=== PATIENT | male | born 1965 | race Hispanic/Latino ===

== ENCOUNTER 2022-06-22 13:14 | Outpatient (CLI) | payer BC, OTHER, SELFPAY | END 2022-06-22 13:15 | disposition home or self-care (01) | LOC: CSHWCC 13:14 | PROVIDERS: ATTEND Nurse Practitioner Family | DX: S81.801D Unspecified open wound, right lower leg, subsequent encounter (principal); R60.0 Localized edema | CPT/HCPCS: 97605; 99203; G0463 ==

== ENCOUNTER 2022-06-26 08:10 | Outpatient (CLI) | payer OTHER | END 2022-06-26 08:11 | disposition home or self-care (01) | LOC: CSHWCC 08:10 | PROVIDERS: ATTEND Nurse Practitioner Family | DX: S81.801D Unspecified open wound, right lower leg, subsequent encounter (principal); R60.0 Localized edema | CPT/HCPCS: 99212; G0463 ==

== ENCOUNTER 2022-07-06 14:31 | Outpatient (CLI) | payer OTHER | END 2022-07-06 14:32 | disposition home or self-care (01) | LOC: CSHWCC 14:31 | PROVIDERS: ATTEND Nurse Practitioner Family | DX: S81.801D Unspecified open wound, right lower leg, subsequent encounter (principal); R60.0 Localized edema | CPT/HCPCS: 11042; 97605 ==

== ENCOUNTER 2022-07-10 11:22 | Outpatient (CLI) | payer OTHER | END 2022-07-10 11:23 | disposition home or self-care (01) | LOC: CSHWCC 11:22 | PROVIDERS: ATTEND Nurse Practitioner Family | DX: S81.801D Unspecified open wound, right lower leg, subsequent encounter (principal); R60.0 Localized edema | CPT/HCPCS: 97605 ==

== ENCOUNTER 2022-07-14 12:48 | Outpatient (CLI) | payer OTHER | END 2022-07-14 12:49 | disposition home or self-care (01) | LOC: CSHWCC 12:48 | PROVIDERS: ATTEND Nurse Practitioner Family | DX: S81.801D Unspecified open wound, right lower leg, subsequent encounter (principal) | CPT/HCPCS: 97605 ==

== ENCOUNTER 2022-07-17 10:51 | Outpatient (CLI) | payer OTHER | END 2022-07-17 10:52 | disposition home or self-care (01) | LOC: CSHWCC 10:51 | PROVIDERS: ATTEND Nurse Practitioner Family | DX: S81.801D Unspecified open wound, right lower leg, subsequent encounter (principal); R60.0 Localized edema | CPT/HCPCS: 97605 ==

== ENCOUNTER 2022-07-21 11:37 | Outpatient (CLI) | payer OTHER | END 2022-07-21 11:38 | disposition home or self-care (01) | LOC: CSHWCC 11:37 | PROVIDERS: ATTEND Nurse Practitioner Family | DX: S81.801D Unspecified open wound, right lower leg, subsequent encounter (principal); R60.0 Localized edema ==

== ENCOUNTER 2022-07-28 10:18 | Outpatient (CLI) | payer OTHER | END 2022-07-28 10:19 | disposition home or self-care (01) | LOC: CSHWCC 10:18 | PROVIDERS: ATTEND Nurse Practitioner Family | DX: S81.801D Unspecified open wound, right lower leg, subsequent encounter (principal); R60.0 Localized edema | CPT/HCPCS: 11042; 11045; 97605 ==

== ENCOUNTER 2022-07-31 10:32 | Outpatient (CLI) | payer OTHER | END 2022-07-31 10:33 | disposition home or self-care (01) | LOC: CSHWCC 10:32 | PROVIDERS: ATTEND Nurse Practitioner Family | DX: S81.801D Unspecified open wound, right lower leg, subsequent encounter (principal); R60.0 Localized edema | CPT/HCPCS: 29581; 97605 ==

== ENCOUNTER 2022-08-04 08:07 | Outpatient (CLI) | payer OTHER | END 2022-08-04 08:08 | disposition home or self-care (01) | LOC: CSHWCC 08:07 | PROVIDERS: ATTEND Nurse Practitioner Family | DX: S81.801D Unspecified open wound, right lower leg, subsequent encounter (principal); R60.0 Localized edema | CPT/HCPCS: 29581; 97605 ==

== ENCOUNTER 2022-08-26 14:23 | Outpatient (CLI) | payer OTHER | END 2022-08-26 14:24 | disposition home or self-care (01) | LOC: CSHWCC 14:23 | PROVIDERS: ATTEND Nurse Practitioner Family | DX: S81.801D Unspecified open wound, right lower leg, subsequent encounter (principal); R60.0 Localized edema | CPT/HCPCS: 29581; 97605 ==

== ENCOUNTER 2022-09-08 11:27 | Outpatient (CLI) | payer OTHER | END 2022-09-08 11:28 | disposition home or self-care (01) | LOC: CSHWCC 11:27 | PROVIDERS: ATTEND Nurse Practitioner Family | DX: S81.801D Unspecified open wound, right lower leg, subsequent encounter (principal); S91.301D Unspecified open wound, right foot, subsequent encounter; R60.0 Localized edema ==

== ENCOUNTER 2022-09-11 10:51 | Outpatient (CLI) | payer OTHER | END 2022-09-11 10:52 | disposition home or self-care (01) | LOC: CSHWCC 10:51 | PROVIDERS: ATTEND Nurse Practitioner Family | DX: S81.801D Unspecified open wound, right lower leg, subsequent encounter (principal); S91.301D Unspecified open wound, right foot, subsequent encounter | CPT/HCPCS: 97605 ==

== ENCOUNTER 2022-09-16 12:03 | Outpatient (CLI) | payer OTHER | END 2022-09-16 12:04 | disposition home or self-care (01) | LOC: CSHWCC 12:03 | PROVIDERS: ATTEND Nurse Practitioner Family | DX: S81.801D Unspecified open wound, right lower leg, subsequent encounter (principal); S91.301D Unspecified open wound, right foot, subsequent encounter; R60.0 Localized edema | CPT/HCPCS: 99213; G0463 ==

== ENCOUNTER 2022-09-16 12:41 | Inpatient (IN) | payer OTHER ==
[2022-09-16 13:45] LABS: #Basophils 0.1 10x3/uL (0.0-0.2); #Eosinphils 0.7 10x3/uL (0.0-0.5); #Monocytes 0.7 10x3/uL (0.0-1.1); #Neutrophils 8.6 10x3/uL (1.5-8.4); %Basophils 0.9 % (0.0-2.0); %Eosinophils 6.2 % (0.0-6.0); %Lymphocytes 11.5 % (18.0-47.0); %Monocytes 6.2 % (0.0-10.0); %Neutrophils 74.7 % (40.0-75.0); Hemoglobin 11.3 g/dL (13.5-17.5); Mean Corpuscular HGB CONC 31.7 g/dL (32.0-36.0); Mean Corpuscular Hemoglobin 25.2 pg (27.0-33.0); Mean Corpuscular Volume 79.7 fl (81.2-95.1); Mean Platelet Volume 9.8 fl (7.4-10.4); Platelet Count 392 10x3/uL (150-450); RBC Distribution Width 15.2 % (11.5-14.5); Red Blood Cell (RBC) Count 4.48 10x6/uL (4.32-5.72); White Blood Cell (WBC) Count 11.5 10x3/uL (3.5-10.5)
[2022-09-16 13:54] LABS: ALT (SGPT) 18 U/L (8-55); AST (SGOT) 14 U/L (5-34); Albumin 4.1 g/dL (3.5-5.0); Alkaline Phosphatase 239 U/L (40-110); Anion Gap 16 mmol/L (10-20); BUN (Urea Nitrogen) 17 mg/dL (8.4-25.7); Bilirubin, Total 0.4 mg/dL (0.2-1.2); CRP (Inflammatory) 6.33 mg/dL (= or < 0.5); Calc. Creatinine Clearance 0 mL/min (70-130); Calcium 10.1 mg/dL (7.8-10.44); Carbon Dioxide 22 mmol/L (22-29); Chloride 103 mmol/L (98-107); Estimated GFR 101; Globulin 4.5 g/dL (2.4-3.5); Glucose 169 mg/dL (70-105); Potassium 4.5 mmol/L (3.5-5.1); Protein, Total 8.6 g/dL (6.0-8.3); Sodium 136 mmol/L (136-145)
[2022-09-16] MEDS ORDERED: Cefepime 2 GM VIAL ONE (16:04)
[2022-09-16] MEDS ORDERED: Vancomycin 1.5 GRAM/300 ML BAG 1.5 GM in Premix Bag 1 BAG IVPB SCH (16:15)
[2022-09-16] MEDS ORDERED: Calcium Carbonate 500 MG ChewTAB PO PRN (19:13)
[2022-09-16] MEDS ORDERED: Dextrose 5% in Water 1,000 ML IV PRN (19:13)
[2022-09-16] MEDS ORDERED: Senokot S 8.6-50 MG TAB PO PRN (19:13)
[2022-09-16] MEDS ORDERED: HYDROcodone/Acetaminophen 5/325 mg Tablet PO PRN (19:13)
[2022-09-16] MEDS ORDERED: Guaifenesin DM 100-10/5 ML UDCUP PO PRN (19:13)
[2022-09-16] MEDS ORDERED: Acetaminophen 325 MG TAB PO PRN (19:13)
[2022-09-16] MEDS ORDERED: Dextrose 50% Abboject 50 ML SYRINGE SLOW IVP PRN (19:13)
[2022-09-16] MEDS ORDERED: Zolpidem Tartrate 5 MG TAB PO PRN (19:13)
[2022-09-16] MEDS ORDERED: Ondansetron PF 4 MG/2 ML Vial IVP PRN (19:13)
[2022-09-16] MEDS ORDERED: Morphine 4 MG/ML VIAL ONE (19:25)
[2022-09-16] MEDS ORDERED: Atorvastatin Calcium 20 MG TAB PO SCH (21:45)
[2022-09-16] MEDS ORDERED: Atorvastatin Calcium 10 MG TAB ONE (21:53)
[2022-09-16] MEDS ORDERED: Amlodipine 5 MG TAB ONE (21:53)
[2022-09-16] MEDS ORDERED: Amlodipine 5 MG TAB PO SCH (22:00)
[2022-09-16] MEDS ORDERED: hydrALAZINE 20 MG/ML VIAL SLOW IVP PRN (23:14)
[2022-09-16] MEDS ORDERED: Nitroglycerin 2% Ointment 1 INCH/1 GM Packet ONE (23:22)
[2022-09-16] MEDS ORDERED: Losartan 25 MG TAB ONE (23:23)
[2022-09-16] MEDS ORDERED: Losartan 25 MG TAB PO SCH (23:59)
[2022-09-16] MEDS ORDERED: Nitroglycerin 2% Ointment 1 INCH/1 GM Packet TOP SCH (23:59)
[2022-09-17] MEDS ORDERED: hydrALAZINE 20 MG/ML VIAL ONE (01:08)
[2022-09-17] MEDS: HumaLOG 300 UNITS/3 ML VIAL SC PRN ×3 (01:16→17:26)
[2022-09-17] MEDS ORDERED: Vancomycin 1 GM VIAL ONE (03:31)
[2022-09-17 03:43] VITALS: BMI 32.9
[2022-09-17 03:55] LABS: #Basophils 0.1 10x3/uL (0.0-0.2); #Eosinphils 0.8 10x3/uL (0.0-0.5); #Monocytes 0.7 10x3/uL (0.0-1.1); #Neutrophils 9.8 10x3/uL (1.5-8.4); %Basophils 0.6 % (0.0-2.0); %Eosinophils 6.5 % (0.0-6.0); %Lymphocytes 6.5 % (18.0-47.0); %Monocytes 5.8 % (0.0-10.0); %Neutrophils 80.3 % (40.0-75.0); Hemoglobin 9.7 g/dL (13.5-17.5); Mean Corpuscular HGB CONC 31.5 g/dL (32.0-36.0); Mean Corpuscular Hemoglobin 25.2 pg (27.0-33.0); Mean Platelet Volume 9.7 fl (7.4-10.4); Platelet Count 359 10x3/uL (150-450); RBC Distribution Width 15.3 % (11.5-14.5); Red Blood Cell (RBC) Count 3.85 10x6/uL (4.32-5.72); White Blood Cell (WBC) Count 12.2 10x3/uL (3.5-10.5)
[2022-09-17 04:06] LABS: Anion Gap 13 mmol/L (10-20); BUN (Urea Nitrogen) 15 mg/dL (8.4-25.7); Calc. Creatinine Clearance 118 mL/min (70-130); Calcium 9.6 mg/dL (7.8-10.44); Carbon Dioxide 23 mmol/L (22-29); Cardiac Risk 3.4 (Less than 4.5); Chloride 105 mmol/L (98-107); Cholesterol 131 mg/dl (< 200 Desired); Estimated GFR 103; Glucose 147 mg/dL (70-105); HDL Cholesterol 39 mg/dL (>60 Neg Risk); LDL Cholesterol, Calculated 74 mg/dL; Potassium 4.4 mmol/L (3.5-5.1); Sodium 137 mmol/L (136-145); Triglycerides 89 mg/dL (Less than 150)
[2022-09-17 04:23] LABS: CRP (Inflammatory) 5.52 mg/dL (= or < 0.5)
[2022-09-17] MEDS ORDERED: Cefepime 1 GM VIAL ONE (04:55)
[2022-09-17] MEDS ORDERED: Vancomycin HCl 1 GM in Sodium Chloride 0.9% 250 ML 250 ML IVPB SCH (05:00)
[2022-09-17] MEDS ORDERED: Cefepime 1 GM in Sodium Chloride 0.9% 100 ML IVPB SCH (06:30)
[2022-09-17] MEDS ORDERED: metFORMIN 500 MG TAB PO SCH ×2 (08:00)
[2022-09-17] MEDS ORDERED: NIFEdipine XL 30 MG TAB ONE (08:46)
[2022-09-17] MEDS ORDERED: Losartan Potassium 50 MG TAB ONE (08:47)
[2022-09-17] MEDS ORDERED: Aspirin Chewable 81 MG TAB ONE (08:48)
[2022-09-17] MEDS ORDERED: metroNIDAZOLE 500 MG/100 ML BAG ONE (08:48)
[2022-09-17] MEDS ORDERED: metroNIDAZOLE 500 MG in Premix Bag 1 BAG IVPB SCH (09:00)
[2022-09-17] MEDS ORDERED: NIFEdipine XL 30 MG TAB PO SCH (09:00)
[2022-09-17] MEDS ORDERED: Aspirin 81 mg Enteric Coated Tablet PO SCH (09:00)
[2022-09-17] MEDS ORDERED: NIFEdipine XL 90 MG TAB PO SCH (09:00)
[2022-09-17] MEDS ORDERED: Losartan Potassium 50 MG TAB PO SCH (09:00)
[2022-09-17] MEDS ORDERED: Magnevist 469MG/ML 20 ML VIAL ONE ×2 (11:33→12:28)
[2022-09-17 13:12] LABS: Hemoglobin A1c 8.2 % (4.0-6.0)
[2022-09-17 16:35] VITALS: BP 139/73; TEMP 98.7
[2022-09-17] MEDS ORDERED: Cefepime 2 GM in Sodium Chloride 0.9% 100 ML IVPB SCH (18:30)
[2022-09-17] MEDS ORDERED: Atorvastatin Calcium 20 MG TAB PO SCH (21:00)
== END 2022-09-17 17:30 | disposition short-term general hospital (02) | DRG 638 ==
LOC: CSHERS 12:41 → CSHERHOLD 21:12 → CSHTELE 09-17 11:57
PROVIDERS: ADMIT Student in an Organized Health Care Education/Training Program; ATTEND Family Medicine
DX: E11.628 Type 2 diabetes mellitus with other skin complications (principal); E11.52 Type 2 diabetes mellitus with diabetic peripheral angiopathy with gangrene; L97.319 Non-pressure chronic ulcer of right ankle with unspecified severity; L97.819 Non-pressure chronic ulcer of other part of right lower leg with unspecified severity; S81.801A Unspecified open wound, right lower leg, initial encounter; I25.10 Atherosclerotic heart disease of native coronary artery without angina pectoris; I10 Essential (primary) hypertension; E78.5 Hyperlipidemia, unspecified; L08.9 Local infection of the skin and subcutaneous tissue, unspecified; I87.2 Venous insufficiency (chronic) (peripheral); D72.829 Elevated white blood cell count, unspecified; D64.9 Anemia, unspecified; M60.9 Myositis, unspecified; Z79.84 Long term (current) use of oral hypoglycemic drugs; Z91.011 Allergy to milk products; Z98.890 Other specified postprocedural states; Z90.49 Acquired absence of other specified parts of digestive tract; Z83.3 Family history of diabetes mellitus; Z79.899 Other long term (current) drug therapy; E11.622 Type 2 diabetes mellitus with other skin ulcer
CPT/HCPCS: 36415; 36416; 80048; 80053; 80061; 82607; 83036; 83605; 84145; 85025; 86140; 87040; 87081; 96365; 96366; 96367; 96375; 97139; A9579; J0360; J0692; J1815; J2270; J3370; J3490; J7050

== ENCOUNTER 2022-09-28 09:47 | Outpatient (CLI) | payer OTHER | END 2022-09-28 09:48 | disposition home or self-care (01) | LOC: CSHWCC 09:47 | PROVIDERS: ATTEND Nurse Practitioner Family | DX: S81.801D Unspecified open wound, right lower leg, subsequent encounter (principal); L97.229 Non-pressure chronic ulcer of left calf with unspecified severity; R60.0 Localized edema | CPT/HCPCS: 11043; 11046 ==

== ENCOUNTER 2022-10-01 13:22 | Outpatient (CLI) | payer OTHER | END 2022-10-01 13:23 | disposition home or self-care (01) | LOC: CSHWCC 13:22 | PROVIDERS: ATTEND Nurse Practitioner Family | DX: S81.801D Unspecified open wound, right lower leg, subsequent encounter (principal); L97.229 Non-pressure chronic ulcer of left calf with unspecified severity; L97.919 Non-pressure chronic ulcer of unspecified part of right lower leg with unspecified severity; R60.0 Localized edema | CPT/HCPCS: 11104; 88305; 99213; G0463 ==

== ENCOUNTER 2022-10-15 10:13 | Outpatient (CLI) | payer OTHER | END 2022-10-15 10:14 | disposition home or self-care (01) | LOC: CSHWCC 10:13 | PROVIDERS: ATTEND Nurse Practitioner Family | DX: S81.801D Unspecified open wound, right lower leg, subsequent encounter (principal); L97.229 Non-pressure chronic ulcer of left calf with unspecified severity; R60.0 Localized edema | CPT/HCPCS: 93923 ==

== ENCOUNTER 2022-10-21 13:00 | Outpatient (CLI) | payer OTHER | END 2022-10-21 13:01 | disposition home or self-care (01) | LOC: CSHWCC 13:00 | PROVIDERS: ATTEND Nurse Practitioner Family | DX: S81.801D Unspecified open wound, right lower leg, subsequent encounter (principal); L97.229 Non-pressure chronic ulcer of left calf with unspecified severity; R60.0 Localized edema | CPT/HCPCS: 99214; G0463 ==

== ENCOUNTER 2022-10-28 09:45 | Outpatient (CLI) | payer OTHER | END 2022-10-28 09:46 | disposition home or self-care (01) | LOC: CSHWCC 09:45 | PROVIDERS: ATTEND Nurse Practitioner Family | DX: S81.801D Unspecified open wound, right lower leg, subsequent encounter (principal); L97.919 Non-pressure chronic ulcer of unspecified part of right lower leg with unspecified severity; L97.929 Non-pressure chronic ulcer of unspecified part of left lower leg with unspecified severity; R60.0 Localized edema | CPT/HCPCS: 99214; G0463 ==

== ENCOUNTER 2022-11-18 09:27 | Outpatient (CLI) | payer OTHER | END 2022-11-18 09:28 | disposition home or self-care (01) | LOC: CSHWCC 09:27 | PROVIDERS: ATTEND Nurse Practitioner Family | DX: R60.0 Localized edema (principal); L97.229 Non-pressure chronic ulcer of left calf with unspecified severity; L97.315 Non-pressure chronic ulcer of right ankle with muscle involvement without evidence of necrosis | CPT/HCPCS: 11042; 11045 ==

== ENCOUNTER 2022-12-21 08:14 | Outpatient (CLI) | payer OTHER | END 2022-12-21 08:15 | disposition home or self-care (01) | LOC: CSHWCC 08:14 | PROVIDERS: ATTEND Nurse Practitioner Family | DX: R60.0 Localized edema (principal); L97.229 Non-pressure chronic ulcer of left calf with unspecified severity; L97.315 Non-pressure chronic ulcer of right ankle with muscle involvement without evidence of necrosis | CPT/HCPCS: 11042; 11045; 99213; G0463 ==

== ENCOUNTER 2023-01-20 13:02 | Outpatient (CLI) | payer OTHER | END 2023-01-20 13:03 | disposition home or self-care (01) | LOC: CSHWCC 13:02 | PROVIDERS: ATTEND Nurse Practitioner Family | DX: R60.0 Localized edema (principal); L97.229 Non-pressure chronic ulcer of left calf with unspecified severity; L97.315 Non-pressure chronic ulcer of right ankle with muscle involvement without evidence of necrosis; S81.802D Unspecified open wound, left lower leg, subsequent encounter | CPT/HCPCS: 11042; 97139; G0463; 99213 ==

== ENCOUNTER 2023-02-04 13:08 | Outpatient (CLI) | payer OTHER | END 2023-02-04 13:09 | disposition home or self-care (01) | LOC: CSHWCC 13:08 | PROVIDERS: ATTEND Nurse Practitioner Family | DX: L97.229 Non-pressure chronic ulcer of left calf with unspecified severity (principal); L97.315 Non-pressure chronic ulcer of right ankle with muscle involvement without evidence of necrosis; S81.802D Unspecified open wound, left lower leg, subsequent encounter | CPT/HCPCS: 11042; 11045 ==

== ENCOUNTER 2023-02-08 08:07 | Outpatient (CLI) | payer OTHER | END 2023-02-08 08:08 | disposition home or self-care (01) | LOC: CSHWCC 08:07 | PROVIDERS: ATTEND Nurse Practitioner Family | DX: L97.229 Non-pressure chronic ulcer of left calf with unspecified severity (principal); R60.0 Localized edema | CPT/HCPCS: 97597 ==

== ENCOUNTER 2023-02-11 15:35 | Outpatient (CLI) | payer OTHER | END 2023-02-11 15:36 | disposition home or self-care (01) | LOC: CSHWCC 15:35 | PROVIDERS: ATTEND Nurse Practitioner Family | DX: R60.0 Localized edema (principal); L97.229 Non-pressure chronic ulcer of left calf with unspecified severity; L97.315 Non-pressure chronic ulcer of right ankle with muscle involvement without evidence of necrosis; S81.802D Unspecified open wound, left lower leg, subsequent encounter | CPT/HCPCS: 11042 ==

== ENCOUNTER 2023-02-17 08:13 | Outpatient (CLI) | payer OTHER | END 2023-02-17 08:14 | disposition home or self-care (01) | LOC: CSHWCC 08:13 | PROVIDERS: ATTEND Nurse Practitioner Family | DX: R60.0 Localized edema (principal); L97.229 Non-pressure chronic ulcer of left calf with unspecified severity; L97.315 Non-pressure chronic ulcer of right ankle with muscle involvement without evidence of necrosis; S81.802D Unspecified open wound, left lower leg, subsequent encounter | CPT/HCPCS: 11042 ==

== ENCOUNTER 2023-02-19 08:08 | Outpatient (CLI) | payer OTHER | END 2023-02-19 08:09 | disposition home or self-care (01) | LOC: CSHWCC 08:08 | PROVIDERS: ATTEND Nurse Practitioner Family | DX: S81.802D Unspecified open wound, left lower leg, subsequent encounter (principal); L97.315 Non-pressure chronic ulcer of right ankle with muscle involvement without evidence of necrosis; R60.0 Localized edema; L97.229 Non-pressure chronic ulcer of left calf with unspecified severity | CPT/HCPCS: 97597 ==

== ENCOUNTER 2023-02-23 08:06 | Outpatient (CLI) | payer OTHER | END 2023-02-23 08:07 | disposition home or self-care (01) | LOC: CSHWCC 08:06 | PROVIDERS: ATTEND Nurse Practitioner Family | DX: S81.802D Unspecified open wound, left lower leg, subsequent encounter (principal); L97.229 Non-pressure chronic ulcer of left calf with unspecified severity; R60.0 Localized edema; L97.315 Non-pressure chronic ulcer of right ankle with muscle involvement without evidence of necrosis | CPT/HCPCS: 11042; 11045 ==

== ENCOUNTER 2023-02-25 08:15 | Outpatient (CLI) | payer OTHER | END 2023-02-25 08:16 | disposition home or self-care (01) | LOC: CSHWCC 08:15 | PROVIDERS: ATTEND Nurse Practitioner Family | DX: S81.802D Unspecified open wound, left lower leg, subsequent encounter (principal); R60.0 Localized edema; L97.229 Non-pressure chronic ulcer of left calf with unspecified severity; L97.315 Non-pressure chronic ulcer of right ankle with muscle involvement without evidence of necrosis | CPT/HCPCS: 99211; G0463 ==

== ENCOUNTER → 2023-03-09 | Outpatient (CLI) | payer OTHER | LOC: CSHWCC 08:00 | PROVIDERS: ATTEND Preventive Medicine Undersea and Hyperbaric Medicine | DX: S81.802D Unspecified open wound, left lower leg, subsequent encounter (principal); L97.315 Non-pressure chronic ulcer of right ankle with muscle involvement without evidence of necrosis; L97.229 Non-pressure chronic ulcer of left calf with unspecified severity; R60.0 Localized edema | CPT/HCPCS: 99213; G0463 ==

== ENCOUNTER 2023-03-16 08:07 | Outpatient (CLI) | payer OTHER | END 2023-03-16 08:08 | disposition home or self-care (01) | LOC: CSHWCC 08:07 | PROVIDERS: ATTEND Preventive Medicine Undersea and Hyperbaric Medicine | DX: S81.802D Unspecified open wound, left lower leg, subsequent encounter (principal); L97.315 Non-pressure chronic ulcer of right ankle with muscle involvement without evidence of necrosis; R60.0 Localized edema | CPT/HCPCS: 36416; 99211; G0463 ==

== ENCOUNTER 2023-03-19 08:07 | Outpatient (CLI) | payer OTHER | END 2023-03-19 08:08 | disposition home or self-care (01) | LOC: CSHWCC 08:07 | PROVIDERS: ATTEND Physician Assistant | DX: S81.802D Unspecified open wound, left lower leg, subsequent encounter (principal); L97.315 Non-pressure chronic ulcer of right ankle with muscle involvement without evidence of necrosis; L97.229 Non-pressure chronic ulcer of left calf with unspecified severity; R60.0 Localized edema | CPT/HCPCS: 99211; G0463 ==

== ENCOUNTER 2023-03-23 08:07 | Outpatient (CLI) | payer OTHER | END 2023-03-23 08:08 | disposition home or self-care (01) | LOC: CSHWCC 08:07 | PROVIDERS: ATTEND Physician Assistant | DX: S81.802D Unspecified open wound, left lower leg, subsequent encounter (principal); L97.229 Non-pressure chronic ulcer of left calf with unspecified severity; L97.315 Non-pressure chronic ulcer of right ankle with muscle involvement without evidence of necrosis; R60.0 Localized edema | CPT/HCPCS: 11042; 11045; 29581 ==

== ENCOUNTER 2023-03-26 08:58 | Outpatient (CLI) | payer OTHER | END 2023-03-26 08:59 | disposition home or self-care (01) | LOC: CSHWCC 08:58 | PROVIDERS: ATTEND Physician Assistant | DX: S81.802D Unspecified open wound, left lower leg, subsequent encounter (principal); L97.315 Non-pressure chronic ulcer of right ankle with muscle involvement without evidence of necrosis; L97.229 Non-pressure chronic ulcer of left calf with unspecified severity; R60.0 Localized edema | CPT/HCPCS: 29581 ==

== ENCOUNTER 2023-03-31 14:14 | Outpatient (CLI) | payer OTHER | END 2023-03-31 14:15 | disposition home or self-care (01) | LOC: CSHWCC 14:14 | PROVIDERS: ATTEND Preventive Medicine Undersea and Hyperbaric Medicine | DX: S81.802D Unspecified open wound, left lower leg, subsequent encounter (principal); L97.229 Non-pressure chronic ulcer of left calf with unspecified severity; L97.315 Non-pressure chronic ulcer of right ankle with muscle involvement without evidence of necrosis; R60.0 Localized edema | CPT/HCPCS: 36416; 97602; 99213; G0463 ==

== ENCOUNTER 2023-04-02 09:54 | Outpatient (CLI) | payer OTHER | END 2023-04-02 09:55 | disposition home or self-care (01) | LOC: CSHWCC 09:54 | PROVIDERS: ATTEND Preventive Medicine Undersea and Hyperbaric Medicine | DX: S81.802D Unspecified open wound, left lower leg, subsequent encounter (principal); L97.229 Non-pressure chronic ulcer of left calf with unspecified severity; L97.315 Non-pressure chronic ulcer of right ankle with muscle involvement without evidence of necrosis; R60.0 Localized edema | CPT/HCPCS: 97602 ==

== ENCOUNTER 2023-04-20 09:26 | Outpatient (CLI) | payer OTHER | END 2023-04-20 09:27 | disposition home or self-care (01) | LOC: CSHWCC 09:26 | PROVIDERS: ATTEND Physician Assistant | DX: E11.51 Type 2 diabetes mellitus with diabetic peripheral angiopathy without gangrene (principal); I87.313 Chronic venous hypertension (idiopathic) with ulcer of bilateral lower extremity | CPT/HCPCS: 11043; 29581; 97597 ==

== ENCOUNTER 2023-04-30 08:07 | Outpatient (CLI) | payer OTHER | END 2023-04-30 08:08 | disposition home or self-care (01) | LOC: CSHWCC 08:07 | PROVIDERS: ATTEND Physician Assistant | DX: E11.8 Type 2 diabetes mellitus with unspecified complications (principal); I87.313 Chronic venous hypertension (idiopathic) with ulcer of bilateral lower extremity; I73.9 Peripheral vascular disease, unspecified | CPT/HCPCS: 29581 ==

== ENCOUNTER 2023-05-19 09:43 | Outpatient (CLI) | payer OTHER | END 2023-05-19 09:44 | disposition home or self-care (01) | LOC: CSHWCC 09:43 | PROVIDERS: ATTEND Physician Assistant | DX: I87.313 Chronic venous hypertension (idiopathic) with ulcer of bilateral lower extremity (principal); I73.9 Peripheral vascular disease, unspecified; L97.919 Non-pressure chronic ulcer of unspecified part of right lower leg with unspecified severity; L97.929 Non-pressure chronic ulcer of unspecified part of left lower leg with unspecified severity; E11.8 Type 2 diabetes mellitus with unspecified complications | CPT/HCPCS: 36416; 87070; 87077; 87186; 87205; 99214; G0463 ==

== ENCOUNTER 2023-06-21 15:24 | Outpatient (CLI) | payer OTHER | END 2023-06-21 15:25 | disposition home or self-care (01) | LOC: CSHWCC 15:24 | PROVIDERS: ATTEND Preventive Medicine Undersea and Hyperbaric Medicine | DX: I70.233 Atherosclerosis of native arteries of right leg with ulceration of ankle (principal); I87.313 Chronic venous hypertension (idiopathic) with ulcer of bilateral lower extremity; E11.8 Type 2 diabetes mellitus with unspecified complications; L97.523 Non-pressure chronic ulcer of other part of left foot with necrosis of muscle; L03.116 Cellulitis of left lower limb | CPT/HCPCS: 99213; G0463 ==

== ENCOUNTER 2023-06-24 13:09 | Outpatient (CLI) | payer OTHER | END 2023-06-24 13:10 | disposition home or self-care (01) | LOC: CSHWCC 13:09 | PROVIDERS: ATTEND Preventive Medicine Undersea and Hyperbaric Medicine | DX: I70.233 Atherosclerosis of native arteries of right leg with ulceration of ankle (principal); I87.313 Chronic venous hypertension (idiopathic) with ulcer of bilateral lower extremity; L97.523 Non-pressure chronic ulcer of other part of left foot with necrosis of muscle; E11.8 Type 2 diabetes mellitus with unspecified complications; L03.116 Cellulitis of left lower limb | CPT/HCPCS: 29581 ==

== ENCOUNTER 2023-07-27 14:34 | Outpatient (CLI) | payer OTHER | END 2023-07-27 14:35 | disposition home or self-care (01) | LOC: CSHWCC 14:34 | PROVIDERS: ATTEND Nurse Practitioner Family | DX: I87.313 Chronic venous hypertension (idiopathic) with ulcer of bilateral lower extremity (principal); E11.621 Type 2 diabetes mellitus with foot ulcer; L97.523 Non-pressure chronic ulcer of other part of left foot with necrosis of muscle; I70.233 Atherosclerosis of native arteries of right leg with ulceration of ankle; L03.116 Cellulitis of left lower limb; E11.59 Type 2 diabetes mellitus with other circulatory complications; E11.8 Type 2 diabetes mellitus with unspecified complications; L97.319 Non-pressure chronic ulcer of right ankle with unspecified severity; L97.929 Non-pressure chronic ulcer of unspecified part of left lower leg with unspecified severity | CPT/HCPCS: 11042; 11045; 11104; 88305; 99215; G0463 ==

== ENCOUNTER 2023-07-30 12:24 | Outpatient (CLI) | payer OTHER | END 2023-07-30 12:25 | disposition home or self-care (01) | LOC: CSHWCC 12:24 | PROVIDERS: ATTEND Nurse Practitioner Family | DX: I87.313 Chronic venous hypertension (idiopathic) with ulcer of bilateral lower extremity (principal); I70.233 Atherosclerosis of native arteries of right leg with ulceration of ankle; L97.523 Non-pressure chronic ulcer of other part of left foot with necrosis of muscle; L03.116 Cellulitis of left lower limb; E11.59 Type 2 diabetes mellitus with other circulatory complications; E11.8 Type 2 diabetes mellitus with unspecified complications; L97.319 Non-pressure chronic ulcer of right ankle with unspecified severity; L97.929 Non-pressure chronic ulcer of unspecified part of left lower leg with unspecified severity | CPT/HCPCS: 99215; G0463 ==

== ENCOUNTER 2023-08-03 15:20 | Outpatient (CLI) | payer OTHER | END 2023-08-03 15:21 | disposition home or self-care (01) | LOC: CSHWCC 15:20 | PROVIDERS: ATTEND Nurse Practitioner Family | DX: I87.313 Chronic venous hypertension (idiopathic) with ulcer of bilateral lower extremity (principal); E11.621 Type 2 diabetes mellitus with foot ulcer; L97.523 Non-pressure chronic ulcer of other part of left foot with necrosis of muscle; I70.233 Atherosclerosis of native arteries of right leg with ulceration of ankle; L03.116 Cellulitis of left lower limb | CPT/HCPCS: 11042; 11043; 11046 ==

== ENCOUNTER 2023-08-06 12:01 | Outpatient (CLI) | payer OTHER | END 2023-08-06 12:02 | disposition home or self-care (01) | LOC: CSHWCC 12:01 | PROVIDERS: ATTEND Nurse Practitioner Family | DX: I87.313 Chronic venous hypertension (idiopathic) with ulcer of bilateral lower extremity (principal); I70.233 Atherosclerosis of native arteries of right leg with ulceration of ankle; L97.523 Non-pressure chronic ulcer of other part of left foot with necrosis of muscle; L03.116 Cellulitis of left lower limb; E11.8 Type 2 diabetes mellitus with unspecified complications; L97.929 Non-pressure chronic ulcer of unspecified part of left lower leg with unspecified severity | CPT/HCPCS: 29581 ==

== ENCOUNTER 2023-08-10 16:18 | Outpatient (CLI) | payer OTHER | END 2023-08-10 16:19 | disposition home or self-care (01) | LOC: CSHWCC 16:18 | PROVIDERS: ATTEND Nurse Practitioner Family | DX: I87.313 Chronic venous hypertension (idiopathic) with ulcer of bilateral lower extremity (principal); I70.233 Atherosclerosis of native arteries of right leg with ulceration of ankle; L97.523 Non-pressure chronic ulcer of other part of left foot with necrosis of muscle; L97.212 Non-pressure chronic ulcer of right calf with fat layer exposed; E11.8 Type 2 diabetes mellitus with unspecified complications; L03.116 Cellulitis of left lower limb | CPT/HCPCS: 11042; 11045 ==

== ENCOUNTER 2023-08-20 15:24 | Outpatient (CLI) | payer OTHER | END 2023-08-20 15:25 | disposition home or self-care (01) | LOC: CSHWCC 15:24 | PROVIDERS: ATTEND Nurse Practitioner Family | DX: I87.313 Chronic venous hypertension (idiopathic) with ulcer of bilateral lower extremity (principal); E11.621 Type 2 diabetes mellitus with foot ulcer; E11.622 Type 2 diabetes mellitus with other skin ulcer; L97.523 Non-pressure chronic ulcer of other part of left foot with necrosis of muscle; L97.212 Non-pressure chronic ulcer of right calf with fat layer exposed; L03.116 Cellulitis of left lower limb; I70.233 Atherosclerosis of native arteries of right leg with ulceration of ankle; E11.59 Type 2 diabetes mellitus with other circulatory complications | CPT/HCPCS: 29581 ==

== ENCOUNTER 2023-08-24 | Outpatient (CLI) | payer OTHER | END 2023-08-24 09:47 | disposition home or self-care (01) | DX: I87.313 Chronic venous hypertension (idiopathic) with ulcer of bilateral lower extremity (principal); I70.233 Atherosclerosis of native arteries of right leg with ulceration of ankle; E11.621 Type 2 diabetes mellitus with foot ulcer; L97.523 Non-pressure chronic ulcer of other part of left foot with necrosis of muscle; L97.212 Non-pressure chronic ulcer of right calf with fat layer exposed; L03.116 Cellulitis of left lower limb ==

== ENCOUNTER 2023-08-27 13:32 | Outpatient (CLI) | payer OTHER | END 2023-08-27 13:33 | disposition home or self-care (01) | LOC: CSHWCC 13:32 | PROVIDERS: ATTEND Nurse Practitioner Family | DX: I87.313 Chronic venous hypertension (idiopathic) with ulcer of bilateral lower extremity (principal); L97.523 Non-pressure chronic ulcer of other part of left foot with necrosis of muscle; L97.212 Non-pressure chronic ulcer of right calf with fat layer exposed; I70.211 Atherosclerosis of native arteries of extremities with intermittent claudication, right leg; L03.116 Cellulitis of left lower limb; I70.233 Atherosclerosis of native arteries of right leg with ulceration of ankle; E11.8 Type 2 diabetes mellitus with unspecified complications ==

== ENCOUNTER 2023-11-01 10:23 | Outpatient (CLI) | payer OTHER | END 2023-11-01 10:24 | disposition home or self-care (01) | LOC: CSHWCC 10:23 | PROVIDERS: ATTEND Nurse Practitioner Family | DX: I87.313 Chronic venous hypertension (idiopathic) with ulcer of bilateral lower extremity (principal); E11.622 Type 2 diabetes mellitus with other skin ulcer; L97.322 Non-pressure chronic ulcer of left ankle with fat layer exposed; L97.212 Non-pressure chronic ulcer of right calf with fat layer exposed; I70.233 Atherosclerosis of native arteries of right leg with ulceration of ankle | CPT/HCPCS: 11042; 99213; G0463 ==

== ENCOUNTER 2023-11-22 11:24 | Outpatient (CLI) | payer OTHER | END 2023-11-22 11:25 | disposition home or self-care (01) | LOC: CSHWCC 11:24 | PROVIDERS: ATTEND Nurse Practitioner Family | DX: I87.313 Chronic venous hypertension (idiopathic) with ulcer of bilateral lower extremity (principal); E11.622 Type 2 diabetes mellitus with other skin ulcer; L97.322 Non-pressure chronic ulcer of left ankle with fat layer exposed; L97.122 Non-pressure chronic ulcer of left thigh with fat layer exposed; I73.9 Peripheral vascular disease, unspecified | CPT/HCPCS: 11042; 97597 ==

== ENCOUNTER 2023-12-09 11:38 | Outpatient (CLI) | payer OTHER | END 2023-12-09 11:39 | disposition home or self-care (01) | LOC: CSHWCC 11:38 | PROVIDERS: ATTEND Nurse Practitioner Family | DX: I87.313 Chronic venous hypertension (idiopathic) with ulcer of bilateral lower extremity (principal); E11.622 Type 2 diabetes mellitus with other skin ulcer; L97.322 Non-pressure chronic ulcer of left ankle with fat layer exposed; L97.122 Non-pressure chronic ulcer of left thigh with fat layer exposed; I73.9 Peripheral vascular disease, unspecified | CPT/HCPCS: 11042; 87070; 87077; 87186; 87205; 97605 ==

== ENCOUNTER 2023-12-13 10:55 | Outpatient (CLI) | payer OTHER | END 2023-12-13 10:56 | disposition home or self-care (01) | LOC: CSHWCC 10:55 | PROVIDERS: ATTEND Nurse Practitioner Family | DX: I87.313 Chronic venous hypertension (idiopathic) with ulcer of bilateral lower extremity (principal); E11.622 Type 2 diabetes mellitus with other skin ulcer; L97.322 Non-pressure chronic ulcer of left ankle with fat layer exposed; L97.122 Non-pressure chronic ulcer of left thigh with fat layer exposed; I73.9 Peripheral vascular disease, unspecified ==

== ENCOUNTER 2023-12-17 16:00 | Outpatient (CLI) | payer OTHER | END 2023-12-17 16:01 | disposition home or self-care (01) | LOC: CSHWCC 16:00 | PROVIDERS: ATTEND Nurse Practitioner Family | DX: I87.313 Chronic venous hypertension (idiopathic) with ulcer of bilateral lower extremity (principal); E11.622 Type 2 diabetes mellitus with other skin ulcer; L97.322 Non-pressure chronic ulcer of left ankle with fat layer exposed; L97.212 Non-pressure chronic ulcer of right calf with fat layer exposed; L97.122 Non-pressure chronic ulcer of left thigh with fat layer exposed; E11.59 Type 2 diabetes mellitus with other circulatory complications | CPT/HCPCS: 11042 ==

== ENCOUNTER 2023-12-24 11:47 | Outpatient (CLI) | payer OTHER | END 2023-12-24 11:48 | disposition home or self-care (01) | LOC: CSHWCC 11:47 | PROVIDERS: ATTEND Nurse Practitioner Family | DX: I87.313 Chronic venous hypertension (idiopathic) with ulcer of bilateral lower extremity (principal); E11.622 Type 2 diabetes mellitus with other skin ulcer; L97.322 Non-pressure chronic ulcer of left ankle with fat layer exposed; L97.212 Non-pressure chronic ulcer of right calf with fat layer exposed; L97.122 Non-pressure chronic ulcer of left thigh with fat layer exposed; E11.59 Type 2 diabetes mellitus with other circulatory complications | CPT/HCPCS: 97597 ==

== ENCOUNTER 2023-12-30 13:09 | Outpatient (CLI) | payer OTHER | END 2023-12-30 13:10 | disposition home or self-care (01) | LOC: CSHWCC 13:09 | PROVIDERS: ATTEND Nurse Practitioner Family | DX: I87.313 Chronic venous hypertension (idiopathic) with ulcer of bilateral lower extremity (principal); E11.622 Type 2 diabetes mellitus with other skin ulcer; L97.322 Non-pressure chronic ulcer of left ankle with fat layer exposed; L97.122 Non-pressure chronic ulcer of left thigh with fat layer exposed; I73.9 Peripheral vascular disease, unspecified | CPT/HCPCS: 11042 ==

== ENCOUNTER 2024-01-06 15:50 | Outpatient (CLI) | payer OTHER | END 2024-01-06 15:51 | disposition home or self-care (01) | LOC: CSHWCC 15:50 | PROVIDERS: ATTEND Nurse Practitioner Family | DX: I87.313 Chronic venous hypertension (idiopathic) with ulcer of bilateral lower extremity (principal); E11.622 Type 2 diabetes mellitus with other skin ulcer; L97.322 Non-pressure chronic ulcer of left ankle with fat layer exposed; E11.59 Type 2 diabetes mellitus with other circulatory complications | CPT/HCPCS: 11042 ==

== ENCOUNTER 2024-03-09 13:01 | Outpatient (CLI) | payer OTHER | END 2024-03-09 13:02 | disposition home or self-care (01) | LOC: CSHWCC 13:01 | PROVIDERS: ATTEND Nurse Practitioner Family | DX: I87.313 Chronic venous hypertension (idiopathic) with ulcer of bilateral lower extremity (principal); E11.622 Type 2 diabetes mellitus with other skin ulcer; L97.322 Non-pressure chronic ulcer of left ankle with fat layer exposed; I73.9 Peripheral vascular disease, unspecified | CPT/HCPCS: 11042 ==

== ENCOUNTER 2024-03-16 09:49 | Outpatient (CLI) | payer OTHER | END 2024-03-16 09:50 | disposition home or self-care (01) | LOC: CSHWCC 09:49 | PROVIDERS: ATTEND Nurse Practitioner Family | DX: I87.313 Chronic venous hypertension (idiopathic) with ulcer of bilateral lower extremity (principal); E11.622 Type 2 diabetes mellitus with other skin ulcer; L97.322 Non-pressure chronic ulcer of left ankle with fat layer exposed; E11.59 Type 2 diabetes mellitus with other circulatory complications | CPT/HCPCS: 97597 ==

== ENCOUNTER 2024-03-23 10:31 | Outpatient (CLI) | payer OTHER | END 2024-03-23 10:32 | disposition home or self-care (01) | LOC: CSHWCC 10:31 | PROVIDERS: ATTEND Nurse Practitioner Family | DX: I87.313 Chronic venous hypertension (idiopathic) with ulcer of bilateral lower extremity (principal); E11.622 Type 2 diabetes mellitus with other skin ulcer; L97.322 Non-pressure chronic ulcer of left ankle with fat layer exposed; E11.59 Type 2 diabetes mellitus with other circulatory complications | CPT/HCPCS: 97597; 99213; G0463 ==

== ENCOUNTER 2024-03-30 09:49 | Outpatient (CLI) | payer OTHER | END 2024-03-30 09:50 | disposition home or self-care (01) | LOC: CSHWCC 09:49 | PROVIDERS: ATTEND Nurse Practitioner Family | DX: I87.313 Chronic venous hypertension (idiopathic) with ulcer of bilateral lower extremity (principal); E11.622 Type 2 diabetes mellitus with other skin ulcer; L97.222 Non-pressure chronic ulcer of left calf with fat layer exposed; L97.919 Non-pressure chronic ulcer of unspecified part of right lower leg with unspecified severity; E11.51 Type 2 diabetes mellitus with diabetic peripheral angiopathy without gangrene | CPT/HCPCS: 99213; G0463 ==

== ENCOUNTER 2024-04-13 14:15 | Outpatient (CLI) | payer OTHER | END 2024-04-13 14:16 | disposition home or self-care (01) | LOC: CSHWCC 14:15 | PROVIDERS: ATTEND Nurse Practitioner Family | DX: I73.9 Peripheral vascular disease, unspecified (principal); Z87.2 Personal history of diseases of the skin and subcutaneous tissue | CPT/HCPCS: 99212; G0463 ==